=== PATIENT | male | born 2000 | race Caucasian/White ===

== ENCOUNTER 2023-03-12 23:25 | Emergency (ER) | payer SELFPAY ==
[~2023-03-12] VITALS: Ht 165.1 cm; Wt 96.2 kg
[2023-03-12 23:25] VITALS: BP 124/72
--- NOTE | 2023-03-12 23:41 | NUR ---
Patient discharged. Written and verbal after care instructions given and explained. Patient verbalized understanding. Patient ambulatory and in custody. ID band removed. All questions addressed prior to discharge. Advised to follow up with PMD.
== END 2023-03-12 23:41 | disposition home or self-care (01) ==
LOC: MED 23:25
DX: Z02.89 Encounter for other administrative examinations (principal)
CPT/HCPCS: 99283